=== PATIENT | female | born 1980 | race Two or more races ===

== ENCOUNTER 2020-07-24 12:52 | Emergency (ER) | payer OTHER ==
[~2020-07-24] VITALS: Ht 157.5 cm; Wt 59.0 kg
[2020-07-29] MEDS ORDERED: TRAMADOL PO (10:50)
== END 2020-07-24 18:06 | disposition home or self-care (01) ==
LOC: ER 12:52
DX: S52.122A Displaced fracture of head of left radius, initial encounter for closed fracture (principal); W17.89XA Other fall from one level to another, initial encounter; Y93.89 Activity, other specified; Y92.89 Other specified places as the place of occurrence of the external cause; Y99.8 Other external cause status

== ENCOUNTER → 2020-07-30 | Day surgery (SDC) | payer OTHER ==
[~2020-07-30] MED LIST: TRAMADOL PO
== END | disposition home or self-care (01) ==
LOC: ADM 07-29 08:15 → CIR.AMB 08:15
PROVIDERS: ATTEND Orthopaedic Surgery
DX: S52.572A Other intraarticular fracture of lower end of left radius, initial encounter for closed fracture (principal); M65.4 Radial styloid tenosynovitis [de Quervain]; Z20.828 Contact with and (suspected) exposure to other viral communicable diseases
CPT/HCPCS: 25609; 25118; 20902; C1776